=== PATIENT | female | born 1995 | race Hispanic/Latino ===

== ENCOUNTER 2016-12-14 22:36 | Emergency (ER) | payer OTHER ==
[~2016-12-14] VITALS: Ht 154.9 cm; Wt 77.3 kg
[~2016-12-14 22:36] MED LIST: Ascorbic Acid PO; DOCU-41 PO; FERR-74 PO; IBUP-1827 PO; Lanolin TOPICAL; OXYC1TAB24 PO
[2016-12-14 22:47] VITALS: BP 122/66; PULSE 80; RESP 16; O2SAT 99
--- NOTE | 2016-12-15 00:31 | ED.REPORT ---
HPI- Female Date of Service Dec 15, 2016 ED Provider: Dr. Erasto Mello D.O. A healthy 21 year old female presents to the ED with vaginal sores onset a couple of days ago. Associated symptoms include vaginal pain and light spotting. The patient had an IUD placed two weeks ago. She denies lower abdominal pain. The patient was seen at Urgent Care since onset and placed on acyclovir with herpes labs pending. The patient has never had similar symptoms in the past. Nursing Notes Stated Complaint: PELVIC EXAM,POSS IUD COMPLICATION Chief Complaint: General Complaint Nursing Notes Reviewed: Yes Allergies: Coded Allergies: No Known Allergies (Unverified , 12/14/16) Scheduled ([Ascorbic Acid]) 500 MG TABLET 500 MG PO DAILYWM Docusate Sodium (Colace) 100 Mg Capsule 100 MG PO BID Ferrous Sulfate (Feosol) 325 Mg Tablet 325 MG PO BIDWM Scheduled PRN ([Lanolin]) 2 APPLIC/GM OINT 1 APPLIC TOPICAL DIRECTED PRN PRN for breast care Ibuprofen (Ibuprofen) 600 Mg Tablet 600 MG PO Q6H PRN PRN For Pain oxyCODONE-Acetaminophen 5-325 mg (oxyCODONE-Acetaminophen 5-325 mg) 1 Each Tablet 1-2 TAB PO Q4H PRN PRN For Pain General Time Seen by MD: 00:30 Chief Complaint Other (Vaginal Sores) Hx Obtained From: Patient Arrived By: Walk-in Sudden in Onset?: Yes Onset Occurred: 3 days ago ("a couple") Symptom Duration: Since onset Location: : Vulva left: Vulva right Quality: Painful Severity: Current: Moderate Severity: Maximum: Moderate Associated with: Denies: Abdominal pain, Fever Sexual History / Control: Reports IUD Pertinent Negative: Relieved by nothing Related History: Reports: Abdominal surgery Recent Healthcare: Recent doctor visit, Recent testing, Prior workup Similar Sx Previous: No Past Medical History Past Medical History None reported Past Surgical History Reports: Smoking History Never Smoker Social History Other Social History: Lives with children Ambulatory Status Independent Review of Systems Review of Systems Note: + vaginal sores, vaginal pain Constitutional: Denies: Fever GI: Denies: Abdominal pain, Vomiting Female: Reports: Vaginal bleeding - abnl (spotting) Complete sys rev & neg: except as marked. Respiratory: Denies: Non-productive cough, Shortness of breath Physical Exam Initial Vital Signs Vital Signs (First) Date Time Temp Pulse Resp B/P Pulse Ox O2 Delivery O2 Flow Rate FiO2 12/14/16 22:47 36.2 80 16 122/66 99 Room Air Initial VS: Reviewed Head / Eyes: Atraumatic, Normocephalic ENT: Conjunctiva normal, No scleral icterus Neck: Supple, Full range of motion Respiratory: Breath sounds normal, Clear to auscultation, No respiratory distress Cardiovascular: Regular rate & rhythm, Heart sounds normal Abdomen / GI: Soft, Non-tender Skin: Warm, Dry, No cyanosis Neurologic: Alert, Oriented, Nonfocal Psychiatric: Mood/affect normal, Behavior normal, Normal thought content Female Genitourinary: Feather Maker present External Genitalia: Positive: Erythema present, Lesions present (4 labial vesicular lesions ), Negative: Ulcers present No signs of syphilis Re-Eval/Medical Decision Source of Hx: Old records Re-Evaluation/Progress : Time of Eval: :22 Patient Status: Condition improved Re-Evaluation/Progress Note: Female exam performed. Discussed with patient diagnosis and plan for discharge. Follow-up and return to the ER instructions given. Patient agrees with plan for care and all questions were addressed. Counseled Regarding: Diagnosis, Need for follow-up, When/why to return to ED Discharge & Departure Impression: Primary Impression: Labial lesion Disposition: Home Discharge Condition All VS Reviewed: Yes Condition: Improved Patient Instructions: Genital Herpes Simplex (ED) Additional Instructions: Follow-up with the viral culture testing that the urgent care as performed for you. I do recommend that you finish the course of acyclovir because the lesions are very consistent with genital herpes. This can be a very painful condition. You may take Motrin 600 mg every 8 hours for moderate pain. Take 1- 2 Percocet every 6 hours needed for severe pain. Have your partner tested if he or she develops any lesions. Discuss this with your production cost estimator as well. If you develop any worsening symptoms, fever or signs of pulmonary involvement then you need to be seen right away. Do not drive or drink alcohol or consume acetaminophen while taking the Percocet. Do not breast feed while taking the Percocet. Referrals: Shruti Ellison MD (PCP) Scribe Attestation Portions of this note were transcribed by Kenya Bhatia. I, Dr. Mello, personally performed the history, physical exam, and medical decision-making; I reviewed and confirmed the accuracy of the information in the transcribed note. Signed by: Clyde Mas, 12/15/2016, 02:04 copies to: Shruti Ellison MD, Todd P DO Dec 15, 2016 00:31 KENYA BHATIA Dec 15, 2016 01:39
[2016-12-15] MEDS ORDERED: _oxyCODONE/APAP 5-325 mg Tablet PO PRN (00:55)
[2016-12-15 02:03] VITALS: BP 127/89; PULSE 70; RESP 16; O2SAT 99
== END 2016-12-15 02:06 | disposition home or self-care (01) ==
LOC: SED 22:36
DX: N90.89 Other specified noninflammatory disorders of vulva and perineum (principal); Z97.5 Presence of (intrauterine) contraceptive device